=== PATIENT | male | born 1950 | race Caucasian/White ===

== ENCOUNTER 2016-06-06 09:51 | Inpatient (IN) | payer MEDICARE, OTHER ==
[2016-06-06] MEDS ORDERED: SODIUM CHLORIDE 0.9% 1,000 ML IV STA (10:16)
[2016-06-06 10:22] LABS: Glucose,Whole Blood 88 mg/dL (75-99)
--- NOTE | 2016-06-06 10:44 | ED ---
General Adult HPI <rAi Whyte - Last Filed: 06/06/16 13:42> - General Source: patient, EMS, RN notes reviewed Mode of arrival: EMS <Alexsander Stein - Last Filed: 06/06/16 13:54> - General Chief complaint: Recheck/Abnormal Lab/Rx Stated complaint: Sugar Levels Time Seen by Provider: 06/06/16 10:15 - History of Present Illness Initial comments: Patient is 65-year-old male with a significant past medical history for diabetes , who presents emergency room today by EMS, the chief complaint of hypoglycemia. Patient does admit he took 45 units of his insulin last night before bedtime. He states his normal dose. He states that he woke up this morning checked his sugar was 65. He states this is his normal for him. States began feeling low shaky and nauseous. States checked sugar again was down to 32 and he called EMS. He states he did take some sugar tabs at home. States EMS also given 2 oral sugar tabs and then Of D50. Patient states feeling well at this time. Sugar rechecked on arrival 88 currently. Patient is eating and drinking at bedside. He denies any complaints currently. Patient does admit to nursing staff that he has had thoughts of depression and hurting himself. He gives an example of walking out into traffic. States having no thoughts of doing this today. Patient denies any recent fever, chills , shortness of breath, chest pain, back pain, abdominal pain, vomiting, numbness or tingling, dysuria or hematuria, constipation or diarrhea, headaches or visual changes, or any other complaints. (Alexsander Stein) - Related Data Home Medications Medication Instructions Recorded Confirmed Atorvastatin [Lipitor] 80 mg PO DAILY 05/31/15 06/06/16 Insulin Aspart [NovoLOG] 15 unit SQ TID-W/MEALS 05/31/15 06/06/16 Insulin Glargine,Hum.rec.anlog 66 unit SQ HS 05/31/15 06/06/16 [Lantus Solostar] Omeprazole 40 mg PO DAILY 05/31/15 06/06/16 Spironolactone 100 mg PO DAILY 05/31/15 06/06/16 metFORMIN HCL 1,000 mg PO BID-W/MEALS 05/31/15 06/06/16 Aspirin [Adult Low Dose Aspirin EC] 81 mg PO DAILY 07/02/15 06/06/16 Glimepiride [Amaryl] 1 mg PO [id number] 07/30/15 06/06/16 SUMAtriptan SUCCINATE [Imitrex] 50 mg PO BID PRN 08/11/15 06/06/16 Albuterol Inhaler [Ventolin Hfa 2 puff INHALATION RT-Q4H PRN 06/06/16 06/06/16 Inhaler] Beclomethasone Dipropionate [Qvar 1 puff INHALATION RT-BID 06/06/16 06/06/16 80 mcg] Carvedilol [Coreg] 3.125 mg PO BID 06/06/16 06/06/16 DULoxetine HCL [Cymbalta] 30 mg PO DAILY 06/06/16 06/06/16 Estrogens, Conjugated [Premarin] 1.25 mg PO DAILY 06/06/16 06/06/16 Fluticasone Nasal [place] [Flonase 1 spray EA NOSTRIL DAILY 06/06/16 06/06/16 Nasal [place]] Hydrochlorothiazide [Hydrodiuril] 12.5 mg PO DAILY 06/06/16 06/06/16 Levothyroxine Sodium [Synthroid] 50 mcg PO DAILY 06/06/16 06/06/16 Lisinopril [Zestril] 2.5 mg PO DAILY 06/06/16 06/06/16 Loratadine [Claritin] 10 mg PO DAILY 06/06/16 06/06/16 Montelukast [Singulair] 10 mg PO HS 06/06/16 06/06/16 Pregabalin [Lyrica] 225 mg PO BID PRN 06/06/16 06/06/16 traZODone HCL [Desyrel] 100 mg PO HS 06/06/16 06/06/16 Allergies Allergy/AdvReac Type Severity Reaction Status Date / Time ondansetron HCl Allergy Rash/Hives Verified 08/11/15 08:53 [From Zofran (as hydrochloride)] Penicillins Allergy Rash/Hives Verified 08/11/15 08:53 Review of Systems ROS Other: All systems not noted in ROS Statement are negative. <Ari Whyte - Last Filed: 06/06/16 13:42> ROS Other: All systems not noted in ROS Statement are negative. <EmilAlexsander - Last Filed: 06/06/16 13:54> ROS Statement: Those systems with pertinent positive or pertinent negative responses have been documented in the HPI. Past Medical History Past Medical History: Diabetes Mellitus, Hearing Disorder / Deafness, Hyperlipidemia, Myocardial Infarction ([place]), Skin Disorder, Sleep Apnea/CPAP/ BIPAP Additional Past Medical History / Comment(s): migraines,no cpap used,hiatal hernia,gallstones,sores on arm-states "currently treating bedbugs at home", transgender,deaf lt ear,sokaogon rt ear Last Myocardial Infarction Date:: 2012 History of Any Multi-Drug Resistant Organisms: MRSA Date of last positivie culture/infection: 2010 MDRO Source:: unknown Past Surgical History: Cholecystectomy, Heart Catheterization With Stent, Orthopedic Surgery Additional Past Surgical History / Comment(s): cholecystectomy 07-11-15,4 stents, akbar cataracts, left leg surgery age 19 Past Anesthesia/Blood Transfusion Reactions: No Reported Reaction Date of Last Stent Placement:: 2012 Past Psychological History: Anxiety, Depression Smoking Status: Never smoker Past Alcohol Use History: None Reported Past Drug Use History: None Reported - Past Family History Mother Family Medical History: Cancer Father Family Medical History: No Reported History <SteinAlexsander - Last Filed: 06/06/16 13:54> General Exam <Ari Whyte - Last Filed: 06/06/16 13:42> <EmilAlexsander - Last Filed: 06/06/16 13:54> - General Exam Comments Initial Comments: General: The patient is awake and alert, in no distress, and does not appear acutely ill. Eye: Pupils are equal, round and reactive to light, extra-ocular movements are intact. No nystagmus. There is normal conjunctiva bilaterally. No signs of icterus. Ears, nose, mouth and throat: There are moist mucous membranes and no oral lesions. Neck: The neck is supple, there is no tenderness or JVD. Cardiovascular: There is a regular rate and rhythm. No murmur, rub or gallop is appreciated. Respiratory: Lungs are clear to auscultation, respirations are non-labored, breath sounds are equal. No wheezes, stridor, rales, or rhonchi. Gastrointestinal: Soft, non-distended, non-tender abdomen without masses or organomegaly noted. There is no rebound or guarding present. No CVA tenderness. Bowel sounds are unremarkable. Musculoskeletal: Normal ROM, no tenderness. Strength 5/5. Sensation intact. Pulses equal bilaterally 2+. Neurological: A&O x 3. CN II-XII intact, There are no obvious motor or sensory deficits. Coordination appears grossly intact. Speech is normal. Skin: Skin is warm and dry and no rashes or lesions are noted. Psychiatric: Cooperative, appropriate mood & affect, normal judgment. (Alexsander Stein) Medical Decision Making - Lab Data Result diagrams: 06/06/16 10:46 06/06/16 10:46 <Ari Whyte - Last Filed: 06/06/16 13:42> - Lab Data Result diagrams: 06/06/16 10:46 06/06/16 10:46 <Alexsander Stein - Last Filed: 06/06/16 13:54> - Medical Decision Making Medical decision-making. The patient's glucoses stayed low initially at 32, then 61, 57 and 97, and 58. Was necessary to start patient on D5 half-normal saline to keep his blood sugars up. The patient did receive oral glycemic's +3 A of D50 and still the blood sugar remained low patient reports she took 45 units of Lantus last night no other meds. The patient's case discussed with Dr. Zhou, patient be admitted to her service she will handle the medications concerning his diabetes. He'll be placed on D5 half-normal saline at this time and place on sliding scale until she evaluates. Dr. Whyte (Ari Whyte) - Lab Data Lab Results 06/06/16 06/06/16 06/06/16 Range/Units 10:19 10:46 10:46 WBC 7.0 (3.8-10.6) k/uL RBC 4.04 L (4.30-5.90) m/uL Hgb 10.7 L (13.0-17.5) gm/dL Hct 33.5 L (39.0-53.0) % MCV 83.0 (80.0-100.0) fL MCH 26.6 (25.0-35.0) pg MCHC 32.0 (31.0-37.0) g/dL RDW 15.2 (11.5-15.5) % Plt Count 250 (150-450) k/uL Neutrophils % 73 % Lymphocytes % 16 % Monocytes % 6 % Eosinophils % 3 % Basophils % 1 % Neutrophils # 5.1 (1.3-7.7) k/uL Lymphocytes # 1.1 (1.0-4.8) k/uL Monocytes # 0.4 (0-1.0) k/uL Eosinophils # 0.2 (0-0.7) k/uL Basophils # 0.0 (0-0.2) k/uL Hypochromasia Slight Sodium 141 (137-145) mmol/L Potassium 3.6 (3.5-5.1) mmol/L Chloride 101 (98-107) mmol/L Carbon Dioxide 27 (22-30) mmol/L Anion Gap 13 mmol/L BUN 15 (9-20) mg/dL Creatinine 0.86 (0.66-1.25) mg/dL Est GFR (MDRD) Af Amer >60 (>60 ml/min/1.73 sqM) Est GFR (MDRD) Non-Af >60 (>60 ml/min/1.73 sqM) Glucose 81 (74-99) mg/dL POC Glucose (mg/dL) 88 (75-99) mg/dL POC Glu Screening Technician ID Sahra Elkins A Calcium 9.2 (8.4-10.2) mg/dL Total Bilirubin 0.5 (0.2-1.3) mg/dL AST 16 L (17-59) U/L ALT 21 (21-72) U/L Alkaline Phosphatase 77 (38-126) U/L Total Protein 6.6 (6.3-8.2) g/dL Albumin 3.6 (3.5-5.0) g/dL Urine Color Urine Appearance (Clear) Urine pH (5.0-8.0) Ur Specific [place] (1.001-1.035) Urine Protein (Negative) Urine Glucose (UA) (Negative) Urine Ketones (Negative) Urine Blood (Negative) Urine Nitrate (Negative) Urine Bilirubin (Negative) Urine Urobilinogen (<2.0) mg/dL Ur Leukocyte Esterase (Negative) Urine Opiates Screen (NotDetected) Ur Oxycodone Screen (NotDetected) Urine Methadone Screen (NotDetected) Ur Propoxyphene Screen (NotDetected) Ur Barbiturates Screen (NotDetected) U Tricyclic Antidepress (NotDetected) Ur Phencyclidine Scrn (NotDetected) Ur Amphetamines Screen (NotDetected) U Methamphetamines Scrn (NotDetected) U Benzodiazepines Scrn (NotDetected) Urine Cocaine Screen (NotDetected) U Marijuana (THC) Screen (NotDetected) 06/06/16 06/06/16 06/06/16 Range/Units 11:11 11:41 12:29 WBC (3.8-10.6) k/uL RBC (4.30-5.90) m/uL Hgb (13.0-17.5) gm/dL Hct (39.0-53.0) % MCV (80.0-100.0) fL MCH (25.0-35.0) pg MCHC (31.0-37.0) g/dL RDW (11.5-15.5) % Plt Count (150-450) k/uL Neutrophils % % Lymphocytes % % Monocytes % % Eosinophils % % Basophils % % Neutrophils # (1.3-7.7) k/uL Lymphocytes # (1.0-4.8) k/uL Monocytes # (0-1.0) k/uL Eosinophils # (0-0.7) k/uL Basophils # (0-0.2) k/uL Hypochromasia Sodium (137-145) mmol/L Potassium (3.5-5.1) mmol/L Chloride (98-107) mmol/L Carbon Dioxide (22-30) mmol/L Anion Gap mmol/L BUN (9-20) mg/dL Creatinine (0.66-1.25) mg/dL Est GFR (MDRD) Af Amer (>60 ml/min/1.73 sqM) Est GFR (MDRD) Non-Af (>60 ml/min/1.73 sqM) Glucose (74-99) mg/dL POC Glucose (mg/dL) 61 L 57 L 97 (75-99) mg/dL POC Glu Screening Technician ID Vy Burden Brittany, A Lewis, Brittany, A Calcium (8.4-10.2) mg/dL Total Bilirubin (0.2-1.3) mg/dL AST (17-59) U/L ALT (21-72) U/L Alkaline Phosphatase (38-126) U/L Total Protein (6.3-8.2) g/dL Albumin (3.5-5.0) g/dL Urine Color Urine Appearance (Clear) Urine pH (5.0-8.0) Ur Specific [place] (1.001-1.035) Urine Protein (Negative) Urine Glucose (UA) (Negative) Urine Ketones (Negative) Urine Blood (Negative) Urine Nitrate (Negative) Urine Bilirubin (Negative) Urine Urobilinogen (<2.0) mg/dL Ur Leukocyte Esterase (Negative) Urine Opiates Screen (NotDetected) Ur Oxycodone Screen (NotDetected) Urine Methadone Screen (NotDetected) Ur Propoxyphene Screen (NotDetected) Ur Barbiturates Screen (NotDetected) U Tricyclic Antidepress (NotDetected) Ur Phencyclidine Scrn (NotDetected) Ur Amphetamines Screen (NotDetected) U Methamphetamines Scrn (NotDetected) U Benzodiazepines Scrn (NotDetected) Urine Cocaine Screen (NotDetected) U Marijuana (THC) Screen (NotDetected) 06/06/16 06/06/16 06/06/16 Range/Units 12:30 13:00 13:39 WBC (3.8-10.6) k/uL RBC (4.30-5.90) m/uL Hgb (13.0-17.5) gm/dL Hct (39.0-53.0) % MCV (80.0-100.0) fL MCH (25.0-35.0) pg MCHC (31.0-37.0) g/dL RDW (11.5-15.5) % Plt Count (150-450) k/uL Neutrophils % % Lymphocytes % % Monocytes % % Eosinophils % % Basophils % % Neutrophils # (1.3-7.7) k/uL Lymphocytes # (1.0-4.8) k/uL Monocytes # (0-1.0) k/uL Eosinophils # (0-0.7) k/uL Basophils # (0-0.2) k/uL Hypochromasia Sodium (137-145) mmol/L Potassium (3.5-5.1) mmol/L Chloride (98-107) mmol/L Carbon Dioxide (22-30) mmol/L Anion Gap mmol/L BUN (9-20) mg/dL Creatinine (0.66-1.25) mg/dL Est GFR (MDRD) Af Amer (>60 ml/min/1.73 sqM) Est GFR (MDRD) Non-Af (>60 ml/min/1.73 sqM) Glucose (74-99) mg/dL POC Glucose (mg/dL) 58 L 83 (75-99) mg/dL POC Glu Screening Technician ID Sahra Elkins A Bowling, Erinn Calcium (8.4-10.2) mg/dL Total Bilirubin (0.2-1.3) mg/dL AST (17-59) U/L ALT (21-72) U/L Alkaline Phosphatase (38-126) U/L Total Protein (6.3-8.2) g/dL Albumin (3.5-5.0) g/dL Urine Color Light Yellow Urine Appearance Clear (Clear) Urine pH 6.0 (5.0-8.0) Ur Specific [place] 1.006 (1.001-1.035) Urine Protein Negative (Negative) Urine Glucose (UA) Trace H (Negative) Urine Ketones Negative (Negative) Urine Blood Negative (Negative) Urine Nitrate Negative (Negative) Urine Bilirubin Negative (Negative) Urine Urobilinogen <2.0 (<2.0) mg/dL Ur Leukocyte Esterase Negative (Negative) Urine Opiates Screen Not Detected (NotDetected) Ur Oxycodone Screen Not Detected (NotDetected) Urine Methadone Screen Not Detected (NotDetected) Ur Propoxyphene Screen Not Detected (NotDetected) Ur Barbiturates Screen Not Detected (NotDetected) U Tricyclic Antidepress Not Detected (NotDetected) Ur Phencyclidine Scrn Not Detected (NotDetected) Ur Amphetamines Screen Not Detected (NotDetected) U Methamphetamines Scrn Not Detected (NotDetected) U Benzodiazepines Scrn Not Detected (NotDetected) Urine Cocaine Screen Not Detected (NotDetected) U Marijuana (THC) Screen Not Detected (NotDetected) Disposition <Ari Whyte - Last Filed: 06/06/16 13:42> Time of Disposition: 13:34 <Alexsander Stein - Last Filed: 06/06/16 13:54> Clinical Impression: Hypoglycemia Disposition: ADMITTED IP TO THIS HOSP Condition: Stable
[2016-06-06 11:03] LABS: Basophils % (A) 1 %; CH 26.5; Eosinophils # (A) 0.2 k/uL (0-0.7); Eosinophils % (A) 3 %; HCT 33.5 % (39.0-53.0); HGB 10.7 gm/dL (13.0-17.5); Hypochromasia Slight; Luc # (Auto) 0.12; Luc % (Auto) 2; Lymphocytes # (A) 1.1 k/uL (1.0-4.8); Lymphocytes % (A) 16 %; MCH 26.6 pg (25.0-35.0); Mean Platelet Volume 6.9; Monocytes # (A) 0.4 k/uL (0-1.0); Monocytes % (A) 6 %; Neutrophils # (A) 5.1 k/uL (1.3-7.7); Neutrophils % (A) 73 %; RBC 4.04 m/uL (4.30-5.90); RDW 15.2 % (11.5-15.5); WBC (Perox) 7.39
[2016-06-06 11:14] LABS: Glucose,Whole Blood 61 mg/dL (75-99)
[2016-06-06 11:15] LABS: ALT 21 U/L (21-72); AST 16 U/L (17-59); Alkaline Phosphatase 77 U/L (38-126); Anion Gap 13 mmol/L; Blood Urea Nitrogen 15 mg/dL (9-20); Calcium 9.2 mg/dL (8.4-10.2); Carbon Dioxide 27 mmol/L (22-30); Chloride 101 mmol/L (98-107); Glucose 81 mg/dL (74-99); Non-African American GFR(MDRD) >60 (>60 ml/min/1.73 sqM); Potassium 3.6 mmol/L (3.5-5.1); Sodium 141 mmol/L (137-145); Total Bilirubin 0.5 mg/dL (0.2-1.3); Total Protein 6.6 g/dL (6.3-8.2)
[2016-06-06 11:43] LABS: Glucose,Whole Blood 57 mg/dL (75-99)
[2016-06-06] MEDS ORDERED: DEXTROSE 50%-WATER 50 ML SYRINGE IVP STA ×2 (11:46→13:02)
[2016-06-06 12:32] LABS: Glucose,Whole Blood 97 mg/dL (75-99)
[2016-06-06 12:41] LABS: Appearance,Urine Clear (Clear); Bilirubin,Urine Negative (Negative); Glucose,Urine (UA) Trace (Negative); Ketones,Urine Negative (Negative); Leukocyte Esterase,Urine Negative (Negative); Nitrite,Urine Negative (Negative); Protein,Urine Negative (Negative); Specific Gravity,Urine 1.006 (1.001-1.035); UA Billing (MACRO vs. MICRO) CHEM; Urobilinogen,Urine <2.0 mg/dL (<2.0)
[2016-06-06 13:04] LABS: Glucose,Whole Blood 58 mg/dL (75-99)
[2016-06-06 13:43] LABS: Glucose,Whole Blood 83 mg/dL (75-99)
[2016-06-06] MEDS ORDERED: NALOXONE 0.4 MG/ML 1 ML VIAL IV PRN (13:50)
[2016-06-06] MEDS ORDERED: SODIUM CHLORIDE 0.45% 1,000 ML IV SCH (14:00)
[2016-06-06 14:08] LABS: Glucose,Whole Blood 62 mg/dL (75-99)
[2016-06-06] MEDS ORDERED: DEXTROSE 5%-0.45% NACL 1,000 ML IV ONE (14:17)
[2016-06-06 14:52] LABS: Glucose,Whole Blood 88 mg/dL (75-99)
[2016-06-06 16:26] LABS: Glucose,Whole Blood 65 mg/dL (75-99)
[2016-06-06] MEDS ORDERED: SUMAtriptan SUCCINATE 50 MG TAB PO PRN (16:26)
[2016-06-06] MEDS ORDERED: ALBUTEROL NEBULIZED 2.5 MG/3 ML INHALATION PRN (16:26)
[2016-06-06 16:55] LABS: Glucose,Whole Blood 100 mg/dL (75-99)
[2016-06-06 16:55] LABS: Glucose,Whole Blood 63 mg/dL (75-99)
[2016-06-06] MEDS: FLUTICASONE 50MCG/SPRAY NASAL 16GM EA NOSTRIL SCH (17:59)
[2016-06-06] MEDS: INSULIN LISPRO (humaLOG) 300 UNIT/3 ML VIAL SQ SCH ×2 (18:01→21:21)
[2016-06-06] MEDS: DULoxetine HCL 30 MG CAPSULE.DR PO SCH (18:01)
[2016-06-06] MEDS: metFORMIN 500 MG TAB PO SCH (18:01)
[2016-06-06] MEDS: ASPIRIN 81 MG CHEW PO SCH (18:01)
[2016-06-06] MEDS: CARVEDILOL 3.125 MG TAB PO SCH (18:01)
[2016-06-06 18:03] LABS: Glucose,Whole Blood 170 mg/dL (75-99)
--- NOTE | 2016-06-06 18:55 | P.HPIM ---
History of Present Illness H&P Date: 06/06/16 This is a pleasant 65-year-old transgender, patient of Dr. Marie, has underlying history of diabetes mellitus type 2, hypertension, CAD, obstructive sleep apnea and previous myocardial infarction admitted emergency room after she she complained of having hypoglycemic episode. She took her routine Lantus at night 45 units and woke up with a blood sugar of 32. She has normal meals without any changes in her diet, patient denies any diarrhea and nausea no vomiting. There is no other GI losses. She was subsequently seen by the EMS sugars were 45 after 2 tablets of glucose tablets were taken by the patient, patient was subsequently seen in the emergency room with additional remedies for her hyperglycemia. Patient has weakness lightheadedness no syncope has blurred vision no chest pain no palpitations. Patient denies any gastroparesis she does have underlying history of neuropathy. Her routine blood sugars are between 70-80 during the morning fasting hours, and 2 hour postprandials about 200. She recently was taken off the Nipride 2 weeks ago, and there is no reintroduction of these pills. Repeat blood sugars are between 65-70, IV fluids running at D5 to correct hypoglycemia. Monitor him for neurological and cardiovascular complications to include arrhythmia. Patient currently is in telemetryl Review of Systems Constitutional: Reports as per HPI, Denies anorexia, Denies chills, Denies chronic headaches, Denies chronic pain, Denies daytime sleepiness, Denies fatigue, Denies fever, Denies lethargy, Denies malaise, Denies night sweats, Denies poor appetite, Denies sweats, Denies weakness, Denies weight gain, Denies weight loss Ears, nose, mouth and throat: Reports as per HPI, Denies ant. neck pain, Denies bleeding gums, Denies dental pain, Denies dysphagia, Denies epistaxis, Denies headache, Denies hoarseness, Denies mouth pain, Denies nasal congestion, Denies nasal discharge, Denies neck fullness/pressure, Denies neck lump, Denies nose pain, Denies odynophagia, Denies post-nasal drip, Denies sinus pain, Denies sinus pressure, Denies swelling in mouth, Denies swelling in throat, Denies sore throat, Denies vertigo, Denies voice changes Respiratory: Reports as per HPI, Denies congestion, Denies cough, Denies cough with sputum, Denies dyspnea, Denies excessive sputum, Denies hemoptysis, Denies home oxygen, Denies pain, Denies pain on inspiration, Denies pleurisy, Denies respiratory infections, Denies sleep apnea, Denies snoring, Denies wheezing Gastrointestinal: Reports as per HPI, Denies abdominal pain, Denies belching, Denies bloating, Denies BRBPR, Denies change in bowel habits, Denies coffee ground emesis, Denies constipation, Denies diarrhea, Denies dyspepsia, Denies early satiety, Denies excessive gas, Denies heartburn, Denies hematemesis, Denies hematochezia, Denies indigestion, Denies jaundice, Denies lactose intolerance, Denies loss of appetite, Denies melena, Denies nausea, Denies vomiting Genitourinary: Reports as per HPI, Denies decreased libido, Denies difficulties fathering child, Denies discharge, Denies dysuria, Denies erectile dysfunction, Denies flank pain, Denies genital pain, Denies genital sores, Denies hematuria, Denies impotence, Denies incontinence, Denies kidney stones, Denies nocturia, Denies polyuria, Denies testicular lump, Denies testicular pain, Denies urinary frequency, Denies urinary hesitancy, Denies urinary retention Musculoskeletal: Reports as per HPI, Reports leg numbness/tingling, Denies arm numbness/tingling, Denies atrophy, Denies fractures, Denies frequent falls, Denies gait dysfunction, Denies hot joints, Denies limitation of motion, Denies loss of height, Denies low back pain, Denies morning stiffness, Denies muscle cramps, Denies muscle weakness, Denies myalgias, Denies neck pain, Denies neck stiffness, Denies prior amputations, Denies redness of joints, Denies shooting arm pain, Denies shooting leg pain Integumentary: Reports as per HPI, Denies acne, Denies boils, Denies brittle nails, Denies change in hair/nails, Denies color changes, Denies darkening of skin, Denies depigmentation, Denies dryness, Denies foot/leg ulcers, Denies growths, Denies hirsutism, Denies lesions, Denies onychomycosis, Denies pruritus , Denies rash, Denies sores, Denies striae, Denies unusual bruising, Denies wounds Neurological: Reports as per HPI, Denies aphasia, Denies ataxia, Denies balance difficulties, Denies burning pain, Denies change in mentation, Denies change in smell/taste, Denies change in speech, Denies confusion, Denies convulsions, Denies double vision, Denies gait dysfunction, Denies head injury, Denies headaches, Denies hearing difficulties, Denies lack of coordination, Denies loss of vision, Denies memory loss, Denies migraines, Denies motor disturbance, Denies numbness, Denies paralysis, Denies paresthesias, Denies seizures, Denies sensory deficit, Denies spasticity, Denies syncope, Denies tic, Denies tingling , Denies transient paralysis, Denies tremors, Denies vertigo, Denies weakness, Denies visual changes Psychiatric: Reports as per HPI, Denies anhedonia, Denies anxiety, Denies anxiety attacks, Denies change in appetite, Denies change in libido, Denies change in sleep habits, Denies confusion, Denies depression, Denies difficulty concentrating, Denies disorientation, Denies hallucinations, Denies hopelessness , Denies hypersomnia, Denies insomnia, Denies irritability, Denies memory loss, Denies mood swings, Denies paranoia, Denies sadness/tearfulness, Denies sleep disturbances, Denies suicidal ideation Endocrine: Reports as per HPI, Reports low blood sugars, Denies cold intolerance , Denies deepening of the voice, Denies excessive sweating, Denies excessive thirst, Denies fatigue, Denies flushing, Denies heat intolerance, Denies high blood sugars, Denies increase in ring/shoe/hat size, Denies nocturia, Denies palpitations, Denies polydipsia, Denies polyphagia, Denies polyuria, Denies proptosis, Denies recent glucocorticoid use, Denies thyroid mass, Denies weight change Hematologic/Lymphatic: Reports as per HPI, Denies easy bleeding, Denies easy bruising, Denies lymphadenopathy, Denies lymphedema, Denies thrombophilia Allergic/Immunologic: Reports as per HPI, Denies allergic rhinitis, Denies anaphylaxis, Denies angioedema, Denies gluten intolerance, Denies persistent infections, Denies seasonal allergies, Denies urticaria, Denies wheezing Past Medical History Past Medical History: Diabetes Mellitus, Hearing Disorder / Deafness, Hyperlipidemia, Myocardial Infarction (OR), Skin Disorder, Sleep Apnea/CPAP/ BIPAP Additional Past Medical History / Comment(s): migraines,no cpap used,hiatal hernia,gallstones,sores on arm-states "currently treating bedbugs at home", transgender,deaf lt ear,[place] rt ear Last Myocardial Infarction Date:: 2012 History of Any Multi-Drug Resistant Organisms: MRSA Date of last positivie culture/infection: 2010 MDRO Source:: unknown Past Surgical History: Cholecystectomy, Heart Catheterization With Stent, Orthopedic Surgery Additional Past Surgical History / Comment(s): cholecystectomy 07-11-15,4 stents, akbar cataracts, left leg surgery age 19 Past Anesthesia/Blood Transfusion Reactions: No Reported Reaction Date of Last Stent Placement:: 2012 Past Psychological History: Anxiety, Depression Smoking Status: Never smoker Past Alcohol Use History: None Reported Past Drug Use History: None Reported - Past Family History Mother Family Medical History: Cancer Father Family Medical History: No Reported History Medications and Allergies Home Medications Medication Instructions Recorded Confirmed Type Atorvastatin [Lipitor] 80 mg PO HS 05/31/15 06/06/16 History Insulin Aspart [NovoLOG] 15 unit SQ TID-W/MEALS 05/31/15 06/06/16 History Insulin Glargine,Hum.rec.anlog 66 unit SQ HS 05/31/15 06/06/16 History [Lantus Solostar] Omeprazole 40 mg PO DAILY 05/31/15 06/06/16 History Spironolactone 100 mg PO DAILY 05/31/15 06/06/16 History metFORMIN HCL 1,000 mg PO BID-W/MEALS 05/31/15 06/06/16 History Aspirin [Adult Low Dose Aspirin EC] 81 mg PO DAILY 07/02/15 06/06/16 History SUMAtriptan SUCCINATE [Imitrex] 50 mg PO BID PRN 08/11/15 06/06/16 History Albuterol Inhaler [Ventolin Hfa 2 puff INHALATION RT-Q4H PRN 06/06/16 06/06/16 History Inhaler] Beclomethasone Dipropionate [Qvar 1 puff INHALATION RT-BID 06/06/16 06/06/16 History 80 mcg] Carvedilol [Coreg] 3.125 mg PO BID 06/06/16 06/06/16 History DULoxetine HCL [Cymbalta] 30 mg PO DAILY 06/06/16 06/06/16 History Estrogens, Conjugated [Premarin] 1.25 mg PO DAILY 06/06/16 06/06/16 History Fluticasone Nasal [place] [Flonase 1 spray EA NOSTRIL DAILY 06/06/16 06/06/16 History Nasal [place]] Hydrochlorothiazide [Hydrodiuril] 12.5 mg PO DAILY 06/06/16 06/06/16 History Levothyroxine Sodium [Synthroid] 50 mcg PO DAILY 06/06/16 06/06/16 History Lisinopril [Zestril] 2.5 mg PO DAILY 06/06/16 06/06/16 History Loratadine [Claritin] 10 mg PO DAILY 06/06/16 06/06/16 History Montelukast [Singulair] 10 mg PO HS 06/06/16 06/06/16 History Pregabalin [Lyrica] 225 mg PO BID PRN 06/06/16 06/06/16 History traZODone HCL [Desyrel] 100 mg PO HS 06/06/16 06/06/16 History Allergies Allergy/AdvReac Type Severity Reaction Status Date / Time ondansetron HCl Allergy Rash/Hives Verified 08/11/15 08:53 [From Zofran (as hydrochloride)] Penicillins Allergy Rash/Hives Verified 08/11/15 08:53 Physical Exam Vitals: Vital Signs Temp Pulse Pulse Resp BP BP Pulse Ox 06/06/16 15:54 97.8 F 68 18 119/71 99 06/06/16 14:45 98.0 F 63 15 120/64 98 06/06/16 14:10 61 14 145/75 98 Intake and Output 06/06/16 06/06/16 06/06/16 06:59 14:59 22:59 Other: Voiding Method Toilet Weight 122.6 kg Patient Weight 06/07/16 06:59 Weight 122.6 kg - Constitutional General appearance: cooperative, no acute distress, obese - EENT Eyes: anicteric sclerae, PERRLA ENT: NA/AT, normal oropharynx - Neck Neck: no lymphadenopathy, normal ROM, no other, no rigidity, no stridor, no thyromegaly - Respiratory Respiratory: bilateral: CTA, negative: diminished, dullness, rales, rhonchi, wheezing, prolonged expiration - Cardiovascular Rhythm: irregularly irregular Heart sounds: normal: S1, S2 Abnormal Heart Sounds: no systolic murmur, no diastolic murmur, no rub, no S3 Gallop, no S4 Gallop, no click, no other - Gastrointestinal General gastrointestinal: normal bowel sounds, soft - Integumentary Integumentary: no calor, no cellulitis, no cyanotic, no decreased turgor, no flushed, no jaundiced, normal, normal turgor, no pale, no rash, no ulcer - Neurologic Neurologic: CNII-XII intact - Musculoskeletal Musculoskeletal: gait normal, strength equal bilaterally - Psychiatric Psychiatric: A&O x's 3, appropriate affect, intact judgment & insight Results CBC & Chem 7: 06/06/16 10:46 06/06/16 10:46 Labs: Abnormal Lab Results - Last 24 Hours (Table) 06/06/16 06/06/16 Range/Units 14:06 16:05 POC Glucose (mg/dL) 62 L 65 L (75-99) mg/dL Laboratory Results WBC 7.0 k/uL (3.8-10.6) 06/06/16 10:46 RBC 4.04 m/uL (4.30-5.90) L 06/06/16 10:46 Hgb 10.7 gm/dL (13.0-17.5) L 06/06/16 10:46 Hct 33.5 % (39.0-53.0) L 06/06/16 10:46 MCV 83.0 fL (80.0-100.0) 06/06/16 10:46 MCH 26.6 pg (25.0-35.0) 06/06/16 10:46 MCHC 32.0 g/dL (31.0-37.0) 06/06/16 10:46 RDW 15.2 % (11.5-15.5) 06/06/16 10:46 Plt Count 250 k/uL (150-450) 06/06/16 10:46 Neutrophils % 73 % 06/06/16 10:46 Lymphocytes % 16 % 06/06/16 10:46 Monocytes % 6 % 06/06/16 10:46 Eosinophils % 3 % 06/06/16 10:46 Basophils % 1 % 06/06/16 10:46 Neutrophils # 5.1 k/uL (1.3-7.7) 06/06/16 10:46 Lymphocytes # 1.1 k/uL (1.0-4.8) 06/06/16 10:46 Monocytes # 0.4 k/uL (0-1.0) 06/06/16 10:46 Eosinophils # 0.2 k/uL (0-0.7) 06/06/16 10:46 Basophils # 0.0 k/uL (0-0.2) 06/06/16 10:46 Hypochromasia Slight 06/06/16 10:46 Sodium 141 mmol/L (137-145) 06/06/16 10:46 Potassium 3.6 mmol/L (3.5-5.1) 06/06/16 10:46 Chloride 101 mmol/L (98-107) 06/06/16 10:46 Carbon Dioxide 27 mmol/L (22-30) 06/06/16 10:46 Anion Gap 13 mmol/L 06/06/16 10:46 BUN 15 mg/dL (9-20) 06/06/16 10:46 Creatinine 0.86 mg/dL (0.66-1.25) 06/06/16 10:46 Est GFR (MDRD) Af Amer >60 (>60 ml/min/1.73 sqM) 06/06/16 10:46 Est GFR (MDRD) Non-Af >60 (>60 ml/min/1.73 sqM) 06/06/16 10:46 Glucose 81 mg/dL (74-99) 06/06/16 10:46 POC Glucose (mg/dL) 170 mg/dL (75-99) H 06/06/16 17:59 POC Glu [employer] Ilene Allen 06/06/16 17:59 Calcium 9.2 mg/dL (8.4-10.2) 06/06/16 10:46 Total Bilirubin 0.5 mg/dL (0.2-1.3) 06/06/16 10:46 AST 16 U/L (17-59) L 06/06/16 10:46 ALT 21 U/L (21-72) 06/06/16 10:46 Alkaline Phosphatase 77 U/L (38-126) 06/06/16 10:46 Total Protein 6.6 g/dL (6.3-8.2) 06/06/16 10:46 Albumin 3.6 g/dL (3.5-5.0) 06/06/16 10:46 Urine Color Light Yellow 06/06/16 12:30 Urine Appearance Clear (Clear) 06/06/16 12:30 Urine pH 6.0 (5.0-8.0) 06/06/16 12:30 Ur Specific [place] 1.006 (1.001-1.035) 06/06/16 12:30 Urine Protein Negative (Negative) 06/06/16 12:30 Urine Glucose (UA) Trace (Negative) H 06/06/16 12:30 Urine Ketones Negative (Negative) 06/06/16 12:30 Urine Blood Negative (Negative) 06/06/16 12:30 Urine Nitrate Negative (Negative) 06/06/16 12:30 Urine Bilirubin Negative (Negative) 06/06/16 12:30 Urine Urobilinogen <2.0 mg/dL (<2.0) 06/06/16 12:30 Ur Leukocyte Esterase Negative (Negative) 06/06/16 12:30 Urine Opiates Screen Not Detected (NotDetected) 06/06/16 12:30 Ur Oxycodone Screen Not Detected (NotDetected) 06/06/16 12:30 Urine Methadone Screen Not Detected (NotDetected) 06/06/16 12:30 Ur Propoxyphene Screen Not Detected (NotDetected) 06/06/16 12:30 Ur Barbiturates Screen Not Detected (NotDetected) 06/06/16 12:30 U Tricyclic Antidepress Not Detected (NotDetected) 06/06/16 12:30 Ur Phencyclidine Scrn Not Detected (NotDetected) 06/06/16 12:30 Ur Amphetamines Screen Not Detected (NotDetected) 06/06/16 12:30 U Methamphetamines Scrn Not Detected (NotDetected) 06/06/16 12:30 U Benzodiazepines Scrn Not Detected (NotDetected) 06/06/16 12:30 Urine Cocaine Screen Not Detected (NotDetected) 06/06/16 12:30 U Marijuana (THC) Screen Not Detected (NotDetected) 06/06/16 12:30 Thrombosis Risk Factor Assmnt - DVT/VTE Prophylaxis DVT/VTE Prophylaxis: Mechanical Prophylaxis ordered Assessment and Plan Plan: 1. Hypoglycemia without any overt causes, Lantus 45 units are currently on hold , her pre-meal 15 units before meal is currently on hold, we will going to initiate this when sugars are over 125 most likely in the morning, monitor for neurological and cardiac vascular complications including arrhythmias and CVA TIA related to hypoglycemia 2. Diabetes mellitus type 2 on Lantus 45 units at home and female NovoLog on 15 units 3 times a day along hold 3. CAD currently on metoprolol, spironolactone, Lipitor, Hydrea diarrheal, 4. Neuropathy from diabetes mellitus on Lyrica 5. Hypothyroidism on levothyroxine or changes were made 6. Transgender Transformation currently on spironolactone and estradiol, no changes made COPD on when necessary Proventil, has Hyperlipidemia on Lipitor. |
[2016-06-06 19:13] LABS: Glucose,Whole Blood 195 mg/dL (75-99)
[2016-06-06 20:13] LABS: Glucose,Whole Blood 197 mg/dL (75-99)
[2016-06-06] MEDS: BECLOMETHASONE DIP 80 MCG/PUFF INHALER INHALATION SCH (20:20)
[2016-06-06] MEDS: traZODone HCL 100 MG TAB PO SCH (21:24)
[2016-06-06] MEDS: MONTELUKAST 10 MG TAB PO SCH (21:25)
[2016-06-06] MEDS: ATORVASTATIN 80 MG TAB PO SCH (21:25)
[2016-06-06 22:10] LABS: Glucose,Whole Blood 150 mg/dL (75-99)
[2016-06-06 22:37] LABS: Hemoglobin A1C 6.9 % (4.2-6.1)
[2016-06-07 00:09] LABS: Glucose,Whole Blood 125 mg/dL (75-99)
[2016-06-07 02:11] LABS: Glucose,Whole Blood 100 mg/dL (75-99)
[2016-06-07 03:10] LABS: Glucose,Whole Blood 131 mg/dL (75-99)
[2016-06-07 05:17] LABS: Glucose,Whole Blood 165 mg/dL (75-99)
[2016-06-07 06:52] LABS: Glucose,Whole Blood 142 mg/dL (75-99)
[2016-06-07] MEDS: LEVOTHYROXINE 50 MCG TAB PO SCH (06:52)
[2016-06-07 08:09] LABS: Basophils % (A) 1 %; CH 26.7; CHCM 32.2; Eosinophils # (A) 0.2 k/uL (0-0.7); Eosinophils % (A) 4 %; HCT 33.4 % (39.0-53.0); HDW 2.91; HGB 10.9 gm/dL (13.0-17.5); Hypochromasia Slight; Luc # (Auto) 0.21; Luc % (Auto) 3; Lymphocytes # (A) 1.7 k/uL (1.0-4.8); Lymphocytes % (A) 25 %; MCH 27.2 pg (25.0-35.0); MCHC 32.5 g/dL (31.0-37.0); MCV 83.6 fL (80.0-100.0); Mean Platelet Volume 7.8; Monocytes # (A) 0.4 k/uL (0-1.0); Monocytes % (A) 6 %; Neutrophils # (A) 4.2 k/uL (1.3-7.7); Neutrophils % (A) 62 %; RDW 15.4 % (11.5-15.5); WBC 6.8 k/uL (3.8-10.6); WBC (Perox) 7.15
[2016-06-07] MEDS: BECLOMETHASONE DIP 80 MCG/PUFF INHALER INHALATION SCH ×2 (08:19→19:14)
[2016-06-07 08:30] LABS: ALT 25 U/L (21-72); AST 18 U/L (17-59); Alkaline Phosphatase 81 U/L (38-126); Anion Gap 12 mmol/L; Blood Urea Nitrogen 11 mg/dL (9-20); Calcium 9.8 mg/dL (8.4-10.2); Carbon Dioxide 26 mmol/L (22-30); Chloride 103 mmol/L (98-107); Glucose 139 mg/dL (74-99); Non-African American GFR(MDRD) >60 (>60 ml/min/1.73 sqM); Potassium 4.5 mmol/L (3.5-5.1); Sodium 141 mmol/L (137-145); Total Bilirubin 0.4 mg/dL (0.2-1.3); Total Protein 6.6 g/dL (6.3-8.2)
[2016-06-07 08:59] LABS: Glucose,Whole Blood 204 mg/dL (75-99)
[2016-06-07] MEDS: metFORMIN 500 MG TAB PO SCH ×2 (09:12→18:00)
[2016-06-07] MEDS: ESTROGENS, CONJUGATED 0.625 MG TAB PO SCH (09:12)
[2016-06-07] MEDS: PANTOPRAZOLE 40 MG TABLET PO SCH (09:12)
[2016-06-07] MEDS: LISINOPRIL 2.5 MG TAB PO SCH (09:12)
[2016-06-07] MEDS: LORATADINE 10 MG TAB PO SCH (09:12)
[2016-06-07] MEDS: DULoxetine HCL 30 MG CAPSULE.DR PO SCH (09:12)
[2016-06-07] MEDS: SPIRONOLACTONE 25 MG TAB PO SCH (09:12)
[2016-06-07] MEDS: ASPIRIN 81 MG CHEW PO SCH (09:13)
[2016-06-07] MEDS: FLUTICASONE 50MCG/SPRAY NASAL 16GM EA NOSTRIL SCH (09:13)
[2016-06-07] MEDS: INSULIN LISPRO (humaLOG) 300 UNIT/3 ML VIAL SQ SCH ×4 (09:13→21:17)
[2016-06-07] MEDS: CARVEDILOL 3.125 MG TAB PO SCH ×2 (09:13→18:00)
[2016-06-07] MEDS: HYDROCHLOROTHIAZIDE 12.5 MG CAP PO SCH (10:36)
[2016-06-07 11:10] LABS: Glucose,Whole Blood 174 mg/dL (75-99)
[2016-06-07 13:03] LABS: Glucose,Whole Blood 150 mg/dL (75-99)
[2016-06-07 14:59] LABS: Glucose,Whole Blood 179 mg/dL (75-99)
--- NOTE | 2016-06-07 17:03 | XR ---
EXAMINATION TYPE: XR chest 2V DATE OF EXAM: 06/07/2016 4:53 PM COMPARISON: 08/11/2015 INDICATION: Rhonchi left upper lobe TECHNIQUE: Single frontal view of the chest is obtained. Patient is rotated to the left. FINDINGS: The heart size is mildly prominent. The pulmonary vasculature is normal. Right lung base has increased lung markings. Correlate for right basilar infiltrate. IMPRESSION: 1. Findings suggestive for right lower lobe infiltrate. 2. Left upper lobe infiltrate is not evident.
[2016-06-07 17:17] LABS: Glucose,Whole Blood 118 mg/dL (75-99)
[2016-06-07 18:24] LABS: CH 26.4; CHCM 32.2; HCT 32.3 % (39.0-53.0); HDW 2.92; HGB 10.4 gm/dL (13.0-17.5); Hypochromasia Slight; MCH 26.7 pg (25.0-35.0); MCHC 32.3 g/dL (31.0-37.0); MCV 82.5 fL (80.0-100.0); RBC 3.91 m/uL (4.30-5.90); WBC 7.9 k/uL (3.8-10.6)
[2016-06-07 18:59] LABS: Glucose,Whole Blood 141 mg/dL (75-99)
[2016-06-07 20:51] LABS: Glucose,Whole Blood 124 mg/dL (75-99)
[2016-06-07] MEDS: ATORVASTATIN 80 MG TAB PO SCH (21:19)
[2016-06-07] MEDS: MONTELUKAST 10 MG TAB PO SCH (21:19)
[2016-06-07] MEDS: traZODone HCL 100 MG TAB PO SCH (21:19)
[2016-06-07] MEDS: PREGABALIN 75 MG CAP PO PRN (21:20)
--- NOTE | 2016-06-07 23:15 | P.PN ---
Subjective Principal diagnosis: hypoglycemia This 65 year old patient presented with hypoglycemia. See H and P. Patient indicates that insulin adjustments have been made in recent weeks . Additionally it sounds like patient was taking a sulfonylurea until 2 weeks ago. Patient had been on 45 units of Lantus and 10 units TID of Novolog. Recently Novolog was changed to 14 units in the AM and 15 units in the PM. Was having postprandial glucoses of 200 still 3 hours after the Novolog insulin. One week ago started to be low in the morning and has worsened. Three weeks ago had hypoglycemia for 3 days. Nurse did turn off the dextrose IV at about 2:30 pm. Patient seen at about 5: 30 pm and had not had any hypoglycemia symptoms. Has not been receiving insulin as has been on dextrose IV to maintain glucose. No fever, chills, nausea, emesis. No abd pain. Has been able to eat. No diarrhea or constipation. No cough. Not ill with anything lately. No changes in hormone therapy in years. Anemia noted from last year. Patient unaware. Denies knowledge of any iron deficiency or other anemia root cause. No melena, no hematochezia. Patient sees Kamala Del Toro NP with Dr. Connolly at [facility] as an outpatient. Objective - Vital Signs Vital signs: Vital Signs Temp 98.5 F 06/07/16 15:32 Pulse 65 06/07/16 16:00 Resp 18 06/07/16 19:42 BP 131/69 06/07/16 15:32 Pulse Ox 96 06/07/16 15:32 Intake & Output 06/07/16 06/07/16 06/08/16 06:59 18:59 06:59 Intake Total 444 Balance 444 Intake: Oral 444 Other: Voiding Method Toilet Toilet Toilet # Voids 1 2 - Exam General: Patient awake alert and oriented x 3. No acute distress. HEENT: Sclerae are clear. Pupils equal, round and reactive to light bilaterally. No cervical adenopathy. No pharyngeal erythema or exudate. No thyromegaly. Lymphatic: No anterior cervical adenopathy. Chest: Heart regular in rate and rhythm positive S1 and S2. No S3. No S4. No clicks, rubs or murmurs. Lungs: Faint wheeze and crackle Left upper lobe to ausculation. Clears with cough. No rhonchi. Respirations even and nonlabored. Abdomen/GI: Bowel sounds present in all 4 quadrants. Bowel sounds normoactive. No abdominal tenderness. No mass. No hepatomegaly or splenomegaly. No bruits. Musculoskeletal/ Extremities: No tenderness on muscular exam. No ecchymosis. Vascular: Radial pulses equal. 2/4. DP pulses 2/4. Skin: No rash. Onychomycosis of nails of both feet. Advised regarding possible podiatry appt Neurologic: Awake, alert and oriented times 3. No lateralizing deficits noted on gross inspection Psychiatric: good eye contact. Patient not expressing any suicidal ideation. - Labs CBC & Chem 7: 06/07/16 17:46 06/07/16 07:37 Labs: Abnormal Lab Results - Last 24 Hours (Table) 06/06/16 06/07/16 06/07/16 Range/Units 22:08 00:08 02:09 RBC (4.30-5.90) m/uL Hgb (13.0-17.5) gm/dL Hct (39.0-53.0) % Glucose (74-99) mg/dL POC Glucose (mg/dL) 150 H 125 H 100 H (75-99) mg/dL 06/07/16 06/07/16 06/07/16 Range/Units 03:05 05:16 06:49 RBC (4.30-5.90) m/uL Hgb (13.0-17.5) gm/dL Hct (39.0-53.0) % Glucose (74-99) mg/dL POC Glucose (mg/dL) 131 H 165 H 142 H (75-99) mg/dL 06/07/16 06/07/16 06/07/16 Range/Units 07:37 07:41 08:56 RBC 4.00 L (4.30-5.90) m/uL Hgb 10.9 L (13.0-17.5) gm/dL Hct 33.4 L (39.0-53.0) % Glucose 139 H (74-99) mg/dL POC Glucose (mg/dL) 204 H (75-99) mg/dL 06/07/16 06/07/16 06/07/16 Range/Units 11:05 13:00 14:56 RBC (4.30-5.90) m/uL Hgb (13.0-17.5) gm/dL Hct (39.0-53.0) % Glucose (74-99) mg/dL POC Glucose (mg/dL) 174 H 150 H 179 H (75-99) mg/dL 06/07/16 06/07/16 06/07/16 Range/Units 17:14 17:46 18:55 RBC 3.91 L (4.30-5.90) m/uL Hgb 10.4 L (13.0-17.5) gm/dL Hct 32.3 L (39.0-53.0) % Glucose (74-99) mg/dL POC Glucose (mg/dL) 118 H 141 H (75-99) mg/dL 06/07/16 Range/Units 20:48 RBC (4.30-5.90) m/uL Hgb (13.0-17.5) gm/dL Hct (39.0-53.0) % Glucose (74-99) mg/dL POC Glucose (mg/dL) 124 H (75-99) mg/dL Assessment and Plan Plan: Assessment: 1. Persistent hypoglycemia off of Lantus and Novolog. Improved and now able to tolerate being off of the dextrose drip for the first few hours. Etiology not yet clear. As was persistent over days without medication additional workup indicated. Noobvious sign of infection. Work up for autoimmune versus insulinoma. 2. Diabetes mellitus with neuropathy - see #1 3. Hypertension - essential 4. Hypothyroidism 5. Normocytic, normochromic anemia, etiology to be determined. Present since last year. 6. Asthma history 7. Hyperlipidemia history 8. History of migraine. 9. Onychomycosis akbar toenails. 10. Transgender transformation etiology for Premarin use, no recent changes in hormone therapy to suggest that as etiology of #1. Plan: 1. Continue off of dextrose drip and monitor glucose levels. As was still requiring support so recently, continue to hold and check 9 pm glucose, nurse to call with 9 pm glucose. 2. Check CXR regarding lungs sounds. 3. Start iron studies and occult blood regarding anemia. Stressed need to follow this up as an outpatient to determine the etiology. 4. Labs for hypoglycemia work up ordered including cortisol level to look for adrenal insufficiency, C peptide and proinsulin. 5. Continue other current home medications for other conditions as above.
[2016-06-07 23:25] LABS: Glucose,Whole Blood 150 mg/dL (75-99)
[2016-06-08 01:12] LABS: Glucose,Whole Blood 167 mg/dL (75-99)
[2016-06-08 03:15] LABS: Glucose,Whole Blood 118 mg/dL (75-99)
[2016-06-08 04:17] LABS: Glucose,Whole Blood 134 mg/dL (75-99)
[2016-06-08 06:06] LABS: Glucose,Whole Blood 143 mg/dL (75-99)
[2016-06-08] MEDS: LISINOPRIL 2.5 MG TAB PO SCH (08:02)
[2016-06-08] MEDS: CARVEDILOL 3.125 MG TAB PO SCH ×2 (08:02→16:57)
[2016-06-08] MEDS: ASPIRIN 81 MG CHEW PO SCH (08:02)
[2016-06-08] MEDS: ESTROGENS, CONJUGATED 0.625 MG TAB PO SCH (08:02)
[2016-06-08] MEDS: LEVOTHYROXINE 50 MCG TAB PO SCH (08:02)
[2016-06-08] MEDS: PANTOPRAZOLE 40 MG TABLET PO SCH (08:02)
[2016-06-08] MEDS: DULoxetine HCL 30 MG CAPSULE.DR PO SCH (08:02)
[2016-06-08] MEDS: HYDROCHLOROTHIAZIDE 12.5 MG CAP PO SCH (08:02)
[2016-06-08 08:03] LABS: Glucose,Whole Blood 183 mg/dL (75-99)
[2016-06-08] MEDS: FLUTICASONE 50MCG/SPRAY NASAL 16GM EA NOSTRIL SCH (08:03)
[2016-06-08] MEDS: LORATADINE 10 MG TAB PO SCH (08:03)
[2016-06-08] MEDS: SPIRONOLACTONE 25 MG TAB PO SCH (08:04)
[2016-06-08] MEDS: BECLOMETHASONE DIP 80 MCG/PUFF INHALER INHALATION SCH ×2 (09:00→19:48)
[2016-06-08 09:50] LABS: Glucose,Whole Blood 265 mg/dL (75-99)
[2016-06-08 10:17] LABS: % Iron Saturation 10.1 % (20-50)
[2016-06-08 12:02] LABS: Glucose,Whole Blood 201 mg/dL (75-99)
[2016-06-08] MEDS ORDERED: INSULIN LISPRO (humaLOG) 300 UNIT/3 ML VIAL SQ SCH ×2 (12:30→17:30)
[2016-06-08 14:02] LABS: Glucose,Whole Blood 197 mg/dL (75-99)
[2016-06-08 15:59] LABS: Glucose,Whole Blood 138 mg/dL (75-99)
[2016-06-08] MEDS: INSULIN LISPRO (humaLOG) 300 UNIT/3 ML VIAL SQ SCH (16:54)
--- NOTE | 2016-06-08 16:58 | XR ---
EXAMINATION TYPE: XR chest 2V DATE OF EXAM: 06/08/2016 4:44 PM HISTORY: rll infiltrate. REFERENCE: Previous study dated 06/07/2016. FINDINGS: There is a dextroscoliosis. The heart is enlarged. No discrete infiltrate is seen. Pleural spaces are clear. IMPRESSION: CARDIOMEGALY.
[2016-06-08] MEDS: FERROUS SULFATE 325 MG TAB PO SCH (17:29)
[2016-06-08 18:13] LABS: Glucose,Whole Blood 169 mg/dL (75-99)
[2016-06-08] MEDS ORDERED: COSYNTROPIN 0.25 MG VIAL IVP PRN (19:11)
--- NOTE | 2016-06-08 19:26 | P.PN ---
Subjective Principal diagnosis: hypoglycemia This 65 year old patient presented with hypoglycemia. See H and P. Patient indicates that insulin adjustments have been made in recent weeks . Additionally it sounds like patient was taking a sulfonylurea until 2 weeks ago. Patient had been on 45 units of Lantus and 10 units TID of Novolog. Recently Novolog was changed to 14 units in the AM and 15 units in the PM. Was having postprandial glucoses of 200 still 3 hours after the Novolog insulin. One week ago started to be low in the morning and has worsened. Three weeks ago had hypoglycemia for 3 days. Has been able to eat. No diarrhea or constipation. No cough. Not ill with anything lately. Last bowel movement yesterday. No melena or hematochezia. Has been ambulating in room. Patient sees Kamala Del Toro NP with Dr. Connolly at [facility] as an outpatient. Patient states that she is on disability for back pain and other medical issues. 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 Objective - Vital Signs Vital signs: Vital Signs Temp 98.4 F 06/08/16 16:00 Pulse 66 06/08/16 16:00 Resp 16 06/08/16 16:00 BP 119/71 06/08/16 16:00 Pulse Ox 97 06/08/16 16:00 Intake & Output 06/07/16 06/08/16 06/08/16 18:59 06:59 18:59 Intake Total 444 660 Balance 444 660 Intake: Oral 444 660 Other: Voiding Method Toilet Toilet Toilet # Voids 2 - Exam General: Patient awake alert and oriented x 3. No acute distress. HEENT: Sclerae are clear. Pupils equal, round and reactive to light bilaterally. No cervical adenopathy. No pharyngeal erythema or exudate. No thyromegaly. Lymphatic: No anterior cervical adenopathy. Chest: Heart regular in rate and rhythm positive S1 and S2. No S3. No S4. No clicks, rubs or murmurs. Lungs: Lungs clear. No further adventitious sounds. No rhonchi. Respirations even and nonlabored. Abdomen/GI: Bowel sounds present in all 4 quadrants. Bowel sounds normoactive. No abdominal tenderness. No mass. No hepatomegaly or splenomegaly. No bruits. Musculoskeletal/ Extremities: No tenderness on muscular exam. No ecchymosis. Chronic lower extremity 1+ edema stable with chronic venous stasis changes. No sign of acute infection. Vascular: Radial pulses equal. 2/4. DP pulses 2/4. Skin: No rash. Onychomycosis of nails of both feet. Advised regarding possible podiatry appt Neurologic: Awake, alert and oriented times 3. No lateralizing deficits noted on gross inspection Psychiatric: good eye contact. Patient not expressing any suicidal ideation. - Labs CBC & Chem 7: 06/07/16 17:46 06/07/16 07:37 Labs: Abnormal Lab Results - Last 24 Hours (Table) 06/07/16 06/07/16 06/07/16 Range/Units 17:46 18:55 20:48 RBC 3.91 L (4.30-5.90) m/uL Hgb 10.4 L (13.0-17.5) gm/dL Hct 32.3 L (39.0-53.0) % POC Glucose (mg/dL) 141 H 124 H (75-99) mg/dL Iron (49-181) ug/dL % Saturation (20-50) % 06/07/16 06/08/16 06/08/16 Range/Units 23:22 01:11 03:03 RBC (4.30-5.90) m/uL Hgb (13.0-17.5) gm/dL Hct (39.0-53.0) % POC Glucose (mg/dL) 150 H 167 H 118 H (75-99) mg/dL Iron (49-181) ug/dL % Saturation (20-50) % 06/08/16 06/08/16 06/08/16 Range/Units 04:16 06:01 06:33 RBC (4.30-5.90) m/uL Hgb (13.0-17.5) gm/dL Hct (39.0-53.0) % POC Glucose (mg/dL) 134 H 143 H (75-99) mg/dL Iron 43 L (49-181) ug/dL % Saturation 10.1 L (20-50) % 06/08/16 06/08/16 06/08/16 Range/Units 08:02 09:46 12:00 RBC (4.30-5.90) m/uL Hgb (13.0-17.5) gm/dL Hct (39.0-53.0) % POC Glucose (mg/dL) 183 H 265 H 201 H (75-99) mg/dL Iron (49-181) ug/dL % Saturation (20-50) % 06/08/16 06/08/16 Range/Units 14:01 15:56 RBC (4.30-5.90) m/uL Hgb (13.0-17.5) gm/dL Hct (39.0-53.0) % POC Glucose (mg/dL) 197 H 138 H (75-99) mg/dL Iron (49-181) ug/dL % Saturation (20-50) % Assessment and Plan Plan: Assessment: 1. Persistent hypoglycemia off of Lantus and Novolog. Improved and now able to tolerate being off of the dextrose drip. Still relatively low for someone who had been on 75 total units of insulin recently and more than that prior. Cortisol level low. Will proceed with workup of adrenal insufficiency as the cause. 2. Diabetes mellitus with neuropathy - see #1 3. Hypertension - essential 4. Hypothyroidism 5. Normocytic, normochromic anemia with iron deficiency and other possible contributing factors. Therapy started. Instructed in need for full outpatient evaluation for blood loss and other contributing factors. States last colonoscopy normal 3 years ago. Present since last year. 6. Asthma history 7. Hyperlipidemia history 8. History of migraine. 9. Onychomycosis akbar toenails. 10. Transgender transformation etiology for Premarin use, no recent changes in hormone therapy to suggest that as etiology of #1. 11. Patient relates that decades ago was hospitalized in [place] with endocarditis of mitral and tricuspid valves possibly seeded from urinary infection. No residual issues from a cardiac standpoint known. Plan: 1. Continue off of dextrose drip and monitor glucose levels. Restart insulin sliding scale with meals cautiously only at higher levels. Custom scale entered. 2. Repeat CXR regarding possible right basilar infiltrate. Patient reports extensive workup in past with biopsy for what was a benign condition, possibly a granuloma by description. 2 view ordered as ordered 2 view prior and only 1 view was done. 3. Fecal occult blood ordered. Stressed need to follow this up as an outpatient to determine the etiology. 4. Await other labs drawn for insulin, c peptide, etc. 5. AM cosyntropin stim test for adrenal insufficiency work up. If isolated primary, secondary, etc. will direct the rest of the workup. 5. Continue other current home medications for other conditions as above. 6. Case discussed with physician assuming care Thursday earlier today. Had considered imaging for insulinoma prior to cortisol level coming back, with that being low will pursue adrenal insufficiency first. Lab results will direct course of the work up and whether adrenal or pituitary etiology tied to anemia etiology.
[2016-06-08 20:01] LABS: Glucose,Whole Blood 217 mg/dL (75-99)
[2016-06-08] MEDS: ATORVASTATIN 80 MG TAB PO SCH (21:45)
[2016-06-08] MEDS: traZODone HCL 100 MG TAB PO SCH (21:45)
[2016-06-08] MEDS: MONTELUKAST 10 MG TAB PO SCH (21:45)
[2016-06-08 22:29] LABS: Glucose,Whole Blood 217 mg/dL (75-99)
[2016-06-08] MEDS: PREGABALIN 75 MG CAP PO PRN (22:38)
[2016-06-09 00:11] LABS: Glucose,Whole Blood 225 mg/dL (75-99)
[2016-06-09 02:10] LABS: Glucose,Whole Blood 177 mg/dL (75-99)
[2016-06-09 04:03] LABS: Glucose,Whole Blood 160 mg/dL (75-99)
[2016-06-09 06:08] LABS: Glucose,Whole Blood 182 mg/dL (75-99)
[2016-06-09] MEDS: LEVOTHYROXINE 50 MCG TAB PO SCH (06:31)
[2016-06-09] MEDS: BECLOMETHASONE DIP 80 MCG/PUFF INHALER INHALATION SCH (07:10)
[2016-06-09 07:44] VITALS: BP 106/59; PULSE 67; RESP 18; TEMP 97.4
[2016-06-09 08:00] LABS: Glucose,Whole Blood 185 mg/dL (75-99)
[2016-06-09] MEDS: FERROUS SULFATE 325 MG TAB PO SCH (08:22)
[2016-06-09] MEDS: LISINOPRIL 2.5 MG TAB PO SCH (08:22)
[2016-06-09] MEDS: DULoxetine HCL 30 MG CAPSULE.DR PO SCH (08:22)
[2016-06-09] MEDS: CARVEDILOL 3.125 MG TAB PO SCH (08:22)
[2016-06-09] MEDS: HYDROCHLOROTHIAZIDE 12.5 MG CAP PO SCH (08:22)
[2016-06-09] MEDS: LORATADINE 10 MG TAB PO SCH (08:22)
[2016-06-09] MEDS: SPIRONOLACTONE 25 MG TAB PO SCH (08:22)
[2016-06-09] MEDS: PANTOPRAZOLE 40 MG TABLET PO SCH (08:22)
[2016-06-09] MEDS: INSULIN LISPRO (humaLOG) 300 UNIT/3 ML VIAL SQ SCH (08:23)
[2016-06-09] MEDS: ASPIRIN 81 MG CHEW PO SCH (08:23)
[2016-06-09] MEDS: ESTROGENS, CONJUGATED 0.625 MG TAB PO SCH (08:23)
[2016-06-09] MEDS: FLUTICASONE 50MCG/SPRAY NASAL 16GM EA NOSTRIL SCH (08:24)
[2016-06-09 10:09] LABS: Glucose,Whole Blood 230 mg/dL (75-99)
[2016-06-09 12:20] LABS: Glucose,Whole Blood 225 mg/dL (75-99)
--- NOTE | 2016-06-09 14:34 | P.DS ---
Providers Date of admission: 06/06/16 13:57 Expected date of discharge: 06/09/16 Attending physician: Danna Zhou Primary care physician: Erum Marie [facility] Course: This is a pleasant 65-year-old transgender, patient of Dr. Marie, has underlying history of diabetes mellitus type 2, hypertension, CAD, obstructive sleep apnea and previous myocardial infarction admitted emergency room after she she complained of having hypoglycemic episode. She took her routine Lantus at night 45 units and woke up with a blood sugar of 32. She has normal meals without any changes in her diet, patient denies any diarrhea and nausea no vomiting. There is no other GI losses. She was subsequently seen by the EMS sugars were 45 after 2 tablets of glucose tablets were taken by the patient, patient was subsequently seen in the emergency room with additional remedies for her hyperglycemia. Patient has weakness lightheadedness no syncope has blurred vision no chest pain no palpitations. Patient denies any gastroparesis she does have underlying history of neuropathy. Her routine blood sugars are between 70-80 during the morning fasting hours, and 2 hour postprandials about 200. She recently was taken off the Nipride 2 weeks ago, and there is no reintroduction of these pills. Repeat blood sugars are between 65-70, IV fluids running at D5 to correct hypoglycemia. Monitor him for neurological and cardiovascular complications to include arrhythmia. Patient currently is in telemetryl 06/08: Has been able to eat. No diarrhea or constipation. No cough. Not ill with anything lately. Last bowel movement yesterday. No melena or hematochezia. Has been ambulating in room. Patient sees Kamala Del Toro NP with Dr. Marie at [facility] as an outpatient. Patient states that he is on disability for back pain and other medical issues. 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 06/09: Patient's blood sugars are now rising. He is agreeable to go home on metformin and take Lantus only when his blood sugars are greater than 150. Patient will plan to follow-up with Kamala Del Toro in the next couple of days. Patient will be discharged home today in stable condition. Discharge diagnoses: 1. Hypoglycemia without any overt causes, 2. Diabetes mellitus type 2 with diabetic neuropathy 3. CAD 4. Neuropathy from diabetes mellitus 5. Hypothyroidism 6. Transgender Transformation 7. Hypertension. 8. Normocytic, normochromic anemia with iron deficiency to be worked up as an outpatient. 9. Asthma history 10. COPD 11. Hyperlipidemia Discharge plan: Return home Impression and plan of care have been directed as dictated by the signing physician. Indira Almaraz nurse practitioner acting as scribe for signing physician. Patient Condition at Discharge: Good Plan - Discharge Summary Discharge Medication List Atorvastatin [Lipitor] 80 mg PO HS 05/31/15 [History] Omeprazole 40 mg PO DAILY 05/31/15 [History] Spironolactone 100 mg PO DAILY 05/31/15 [History] metFORMIN HCL 1,000 mg PO BID-W/MEALS 05/31/15 [History] Aspirin [Adult Low Dose Aspirin EC] 81 mg PO DAILY 07/02/15 [History] SUMAtriptan SUCCINATE [Imitrex] 50 mg PO BID PRN 08/11/15 [History] Albuterol Inhaler [Ventolin Hfa Inhaler] 2 puff INHALATION RT-Q4H PRN 06/06/16 [ History] Beclomethasone Dipropionate [Qvar 80 mcg] 1 puff INHALATION RT-BID 06/06/16 [ History] Carvedilol [Coreg] 3.125 mg PO BID 06/06/16 [History] DULoxetine HCL [Cymbalta] 30 mg PO DAILY 06/06/16 [History] Estrogens, Conjugated [Premarin] 1.25 mg PO DAILY 06/06/16 [History] Fluticasone Nasal [place] [Flonase Nasal [place]] 1 spray EA NOSTRIL DAILY 06/06/16 [History] Hydrochlorothiazide [Hydrodiuril] 12.5 mg PO DAILY 06/06/16 [History] Levothyroxine Sodium [Synthroid] 50 mcg PO DAILY 06/06/16 [History] Lisinopril [Zestril] 2.5 mg PO DAILY 06/06/16 [History] Loratadine [Claritin] 10 mg PO DAILY 06/06/16 [History] Montelukast [Singulair] 10 mg PO HS 06/06/16 [History] Pregabalin [Lyrica] 225 mg PO BID PRN 06/06/16 [History] traZODone HCL [Desyrel] 100 mg PO HS 06/06/16 [History] Ferrous Sulfate [Iron (65 MG Elemental)] 325 mg PO BID-W/MEALS tab 06/09/16 [Rx ] Insulin Glargine,Hum.rec.anlog [Lantus Solostar] 10 unit SQ HS #0 06/09/16 [Rx] Follow up Appointment(s)/Referral(s): Erum Marie MD [Primary Care Provider] - 3 Days (Office currently closed. Call for follow up appointment) Patient Instructions/Handouts: Type 2 Diabetes in Adults (DC) Discharge Disposition: HOME SELF-CARE
[2016-06-11 17:44] LABS: Insulin Antibodies 1.9 U/mL (0.0-0.4)
== END 2016-06-09 12:50 | disposition home or self-care (01) | DRG 639 ==
LOC: EC 09:51 → OBSVTOIN 13:57 → 3OBS 13:57 → 4MS4W 06-08 20:05
PROVIDERS: ADMIT Family Medicine; ATTEND Family Medicine
DX: E11.649 Type 2 diabetes mellitus with hypoglycemia without coma (principal); E11.40 Type 2 diabetes mellitus with diabetic neuropathy, unspecified; I10 Essential (primary) hypertension; G43.909 Migraine, unspecified, not intractable, without status migrainosus; B35.1 Tinea unguium; E11.65 Type 2 diabetes mellitus with hyperglycemia; D50.9 Iron deficiency anemia, unspecified; I25.10 Atherosclerotic heart disease of native coronary artery without angina pectoris; J45.909 Unspecified asthma, uncomplicated; J44.9 Chronic obstructive pulmonary disease, unspecified; G47.33 Obstructive sleep apnea (adult) (pediatric); I25.2 Old myocardial infarction; S40.869A Insect bite (nonvenomous) of unspecified upper arm, initial encounter; H91.93 Unspecified hearing loss, bilateral; R53.1 Weakness; F64.9 Gender identity disorder, unspecified; E03.9 Hypothyroidism, unspecified; E78.5 Hyperlipidemia, unspecified; F41.9 Anxiety disorder, unspecified; M54.9 Dorsalgia, unspecified; F32.9 Major depressive disorder, single episode, unspecified; Z86.79 Personal history of other diseases of the circulatory system; Z88.0 Allergy status to penicillin; Z88.8 Allergy status to other drugs, medicaments and biological substances; Z79.82 Long term (current) use of aspirin; Z86.19 Personal history of other infectious and parasitic diseases; Z87.440 Personal history of urinary (tract) infections; Z86.14 Personal history of Methicillin resistant Staphylococcus aureus infection; Z16.24 Resistance to multiple antibiotics; Z80.9 Family history of malignant neoplasm, unspecified; Z90.49 Acquired absence of other specified parts of digestive tract; Z98.42 Cataract extraction status, left eye; Z98.41 Cataract extraction status, right eye; Z79.84 Long term (current) use of oral hypoglycemic drugs; Z79.890 Hormone replacement therapy; Z79.4 Long term (current) use of insulin; Z79.51 Long term (current) use of inhaled steroids; Z79.899 Other long term (current) drug therapy; Z95.5 Presence of coronary angioplasty implant and graft
CPT/HCPCS: 36415; 71020; 80053; 80306; 81003; 82024; 82075; 82272; 82533; 82728; 83036; 83540; 83550; 84206; 84681; 85025; 85027; 86337; 94640; 96360; 96361; 99285